=== PATIENT | female | born 1990 | race Caucasian/White ===

== ENCOUNTER → 2016-04-28 | Outpatient (CLI) | payer OTHER | LOC: MOB LAB 15:40 | DX: R30.0 Dysuria (principal); R31.9 Hematuria, unspecified | CPT/HCPCS: 87077; 87088; 87186 ==

== ENCOUNTER → 2016-07-23 | Outpatient (CLI) | payer OTHER | LOC: MOB LAB 13:44 | PROVIDERS: ATTEND Obstetrics & Gynecology | DX: Z11.3 Encounter for screening for infections with a predominantly sexual mode of transmission (principal) | CPT/HCPCS: 87491; 87591 ==